=== PATIENT | female | born 2000 | race Caucasian/White ===

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

== ENCOUNTER 2021-04-18 07:00 | Day surgery (SDC) | payer OTHER, SELFPAY ==
[2021-04-18 07:31] LABS: Internal QC Validated? YES +Cl - CLEAR BKGD; Pregnancy, Urine Negative Negative
[2021-04-18 07:35] VITALS: BP 121/77; PULSE 63; RESP 16; TEMP 36.8; O2SAT 100; BMI 23.9
[2021-04-18] MEDS: Lactated Ringers 1,000 ML 100 ML IV ×2 (07:57→10:16)
--- NOTE | 2021-04-18 08:30 | GANG_PTH ---
PATIENT: JONH RUTHERFORD [place] [facility] [place][id number] AGE/SX: 20/F ROOM: RE04/18/[address]: Dr. Rasheed Mora DO : 2000 BED: DIS: 04/18/2021 SPEC #: [id number] RECD: 04/18/21 12:59 STATUS: TISHA DEVIN #: [id number] ANKIT: 04/18/21 08:[address]: Rasheed Mora DEPT: SURGICAL PATHOLOGY RECD BY: Lucia Cruz ENTERED: 04/18/21 13:42 SP TYPE: GANGLION OTHR DR: Dr. Rebeca Villareal MD Tissues: GANGLION CYST Procedures: Surgery Specimen Level III HEADER OPERATION: Diagnostic and operative wrist arthroscopy, excision of wrist PRE-OP DIAGNOSIS: TFCC tear, sprain, ganglion, right hand TISSUE SUBMITTED: Right ganglion cyst MICROSCOPIC DIAGNOSIS Right ganglion cyst, excision: Consistent with ganglion cyst with reactive changes. EVELIN:tai 04/19/2021 MICROSCOPIC DESCRIPTION Slides are reviewed. GROSS DESCRIPTION Received in fixative is one container labeled with the patient's name and designated right ganglion cyst. The specimen consists of light irving-white soft tissue measuring 0.7 x 0.7 x 0.2 cm. The specimen is totally submitted in one cassette. / AM:tai 04/18/21 TC:5 CPT: 98983
[2021-04-18] MEDS: Cefazolin 1 GM/50 ML BAG IV (08:33)
[2021-04-18] MEDS: Bupivacaine Mpf 0.5% 30 ML VIAL (10:13)
--- NOTE | 2021-04-18 10:27 | PCM.DC ---
Discharge Instructions Follow Up Care Test Results: Test results from this visit will be discussed in further detail at your follow-up appointment, if applicable. Discharge Plan Admission Primary Reason for Your Visit: Right wrist triangular fibrocartilage complex tear, ganglion cyst Attending Provider: Rasheed Mora Primary Care Provider: Rebeca Villareal Instructions Additional Instructions / Restrictions: Nonweightbearing to the right upper extremity Maintain splint until follow-up. Keep it clean dry and intact. Ice and elevate the right hand above the level of the heart. Wiggle fingers in splint to encourage circulation Discharge Orders/Prescriptions Prescriptions: New oxycodone-acetaminophen [Percocet] 5-325 mg tablet 1 tab PO Q6H PRN (Reason: pain) 7 Days Qty: 28 RF: 0 ondansetron 4 mg tablet,disintegrating 4 mg PO Q8H PRN (Reason: nausea and vomiting) Qty: 14 RF: 0 No Action multivitamin Tablet 1 tab PO DAILY RF: 0 ascorbic acid (vitamin C) [Vitamin C] 500 mg Tablet 500 mg PO DAILY RF: 0 ibuprofen 200 mg Tablet 200 mg PO Q6H PRN (Reason: Pain) RF: 0 vitamin B complex Tablet 1 tab PO DAILY RF: 0 cholecalciferol (vitamin D3) [Vitamin D3] 25 mcg (1,000 unit) Tablet 25 mcg PO DAILY RF: 0 Hrlpcodh-Igabwt-UPD with vit D 750-30-1,000-1 rt-yw-vyui-mg Tablet 1 tab PO DAILY RF: 0 Cbd Oil 5 drp PO/SL BID RF: 0 Referrals / Follow Up: Rebeca Villareal MD [Primary Care Provider] - Disposition Disposition (needs filled in before D/C Order can be placed): Home, Self Care
--- NOTE | 2021-04-18 10:28 | OP.PCM_ITS ---
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 Right wrist peripheral triangular fibrocartilage complex tear 2. Dorsal intercarpal right wrist ganglion cyst Postoperative diagnosis: 1. Right wrist peripheral triangular fibrocartilage complex tear 2. Dorsal intercarpal right wrist ganglion cyst Procedure: 1. Diagnostic and operative right wrist arthroscopy with synovectomy 2. Open excision right dorsal intercarpal wrist ganglion cyst 3. Right wrist open repair triangular fibrocartilage complex peripheral tear Surgeon: Rasheed Mora DO Anesthesia: General endotracheal Anesthesiologist: Dr. Zamorano Complications: None Drains: None Estimated blood loss: 5 cc Urinary output: None IV fluids: Per anesthesia record Specimens: 1-ganglion cyst right wrist Surgical implants: Arthrex mini push lock anchor x1 with 2-0 FiberWire Surgical indications: This is a 20-year-old female seen in the outpatient setting who presented with right wrist pain. She had tenderness overlying the dorsal carpus as well as ulnar-sided wrist pain. She had a fall in the remote past and has had pain since. She has been self treating this with a brace. She sought care and x- rays were benign. There is no evidence of intercarpal instability on x-ray. MRI was obtained and revealed a dorsal intercarpal ganglion cyst originating from between the lunate and capitate as well as capsulitis. There was also a peripheral tear of the TFCC. Operative intervention was offered in the form of right wrist diagnostic and operative arthroscopy with synovectomy, triangular fibrocartilage complex repair, and ganglion cyst excision. The risk, benefits, alternatives to procedure were reviewed with the patient length and she agreed to proceed. Risk included but were not limited to, bleeding, infection, loss of life or limb, risk of anesthesia, neurovascular injury, persistent pain, need for additional surgery, wound complication, hypertrophic scar, need for prolonged immobilization, stiffness. Patient expressed understanding and wished to proceed with surgery. Informed consent obtained in the office. Description of procedure: Patient was seen in preoperative holding area. She was identified by name, medical record number, date of . The operative extremity was marked with a surgical marker. We confirmed informed consent with the patient and all questions were answered to her satisfaction. At time of her procedure, patient was brought to the operative suite and positioned supine on a standard operating table. All bony prominences were well-padded. General anesthesia was administered. After adequate anesthesia, a well-padded pneumatic tourniquet was applied to the right upper arm. A hand table was attached to the patient's right side. We then secured the upper arm to the hand table with a gel pad taped in place. We then prepped and draped the right upper extremity in normal, sterile orthopedic fashion. We then performed a timeout with all parties in attendance in agreement the side, site, operation to be performed. 1 g Ancef was administered prior to incision by anesthesia staff. No concerns were voiced and elected to proceed. We first exsanguinated the right hand and wrist with an Esmarch bandage. Tourniquet was inflated to 250 mmHg remained up for approximately 65 minutes. We then attached sterile finger traps to the index and ring fingers. Rods were attached and thrown off the end of the hand table and attached to 9 pounds of weights. I then marked our 3 for diagnostic portal just distal to Akshat's tubercle. I utilized 5 cc normal saline and a 22-gauge needle to localize the joint insufflated. Skin was sharply incised with a 11 blade scalpel. I bluntly dissected through the subcutaneous tissue to level capsule which was pierced with a blunt tipped mosquito hemostat. I then exchanged the hemostat for blunt tipped trocar. This was used to gain access to the joint. Inflow cannula was also attached and inflow was initiated. I then remove the one-step trocar for visualization of the joint. We began our diagnostic arthroscopy at this time. The scapholunate interval was identified and the ligament appeared intact. The volar radial wrist ligaments were also visualized. Unremarkable. There was some dorsal wrist synovitis which was noted and debrided with a radial resector which was inserted in a 6R portal under direct visualization utilizing a 22- gauge needle. The TFCC was then probed and a peripheral tear at its styloid attachment was identified. No central perforation was noted. Trampoline test was positive. We then withdrew our scope foregoing the midcarpal arthroscopy due to the known ganglion cyst from the midcarpal joint. I was able to palpate the joint as well as the cyst. The cyst measured 5 x 5 x 3 mm. I extended our 3 4 arthroscopy portal distally approximately 2 cm. Skin was sharply incised with a 15 blade scalpel. Extensor retinaculum was identified and we dissected the interval between the third and fourth compartments. I bluntly dissect to the level of the wrist capsule where the cyst was identified. This appeared acceptable ganglion cyst. I elevated the cyst to its originating stock which appeared from the lunocapitate joint, consistent with preoperative MRI. I then I amputated the stock sharply with letter scissors. Interval was closed with 3-0 Vicryl suture. Subcutaneous layers were closed with 3-0 Vicryl suture and skin finally reapproximated 4-0 Monocryl. Steri-Strips were applied. We then turned our attention to the TFCC tear. I utilized the 6R portal extended proximally and distally approximately [address] in a curvilinear fashion. I sharply dissected the skin with a 15 blade scalpel. I bluntly dissected through subcutaneous layers. Wheat Green[place] retractor was placed. Identified the extensor carpi ulnaris tendon which was protected throughout the case. I did not open the sheath. We developed the plane between the fifth and sixth dorsal compartments. The extensor retinaculum was opened. Identified the wrist capsule which was teed proximal to the TFCC and in line with the skin incision. We then identified the styloid attachment tear in the TFCC was unstable and I was able to grab it with my Adson forceps. I then placed horizontal mattress stitch in the periphery of the TFCC with a 2-0 FiberWire suture. The strands of the FiberWire suture were pulled and there was excellent purchase of the articular disc. I then elevated periosteum from the dorsal ulnar aspect of the distal ulna proximal to the ulnar head by approximately 1 cm. I drilled unicortically for a mini Arthrex push lock anchor. Sutures were then passed through the eyelet of the anchor and the anchor was driven into bone with good tension on the suture. The TFCC was then probed again and appeared stable. I then closed the capsule watertight with 3-0 Vicryl suture. Extensor retinaculum was closed with 3-0 Vicryl suture. Subcutaneous layers were reapproximated with 3-0 Vicryl suture and skin finally reapproximated with 4-0 Monocryl suture and Steri-Strips. Tourniquet was deflated prior to skin closure and hemostasis was excellent. 10 cc 0.5% plain Marcaine was injected around the incisions into the wrist joint for postoperative analgesia. Intraoperative medications: 1 g Ancef IV prior to incision by anesthesia, 10 cc 0.5% plain Marcaine Post Operative Plan: Weightbearing: Nonweightbearing operative extremity Antibiotics: Ancef x 1 dose preoperatively DVT Prophylaxis: Early mobilization Padgett: None Dressing: Maintain splint, keep it clean dry and intact until follow-up X-Rays: 2 weeks postop in the office Pain Medication: Percocet Rx upon discharge Follow-up: 2 weeks post-operatively with me in the office
[2021-04-18 10:32] VITALS: BP 100/38; BP 121/77; PULSE 87; RESP 18; TEMP 36.1; O2SAT 97
[2021-04-18 10:45] VITALS: BP 110/69; BP 121/77; PULSE 87; RESP 16; O2SAT 100
[2021-04-18 11:00] VITALS: BP 109/65; BP 121/77; PULSE 84; RESP 16; O2SAT 99
[2021-04-18 11:15] VITALS: BP 113/65; BP 121/77; PULSE 77; RESP 16; TEMP 36.2; O2SAT 97
[2021-04-18 11:45] VITALS: BP 121/77
== END 2021-04-18 12:17 | disposition home or self-care (01) ==
LOC: SDC 07:04 → AC 07:05
PROVIDERS: Anesthesiology; PCP Internal Medicine Infectious Disease; Visit Provider Student in an Organized Health Care Education/Training Program
PROC: (CPT 25111; principal; 2021-04-18 08:15)
DX: S63.591A Other specified sprain of right wrist, initial encounter (principal); M67.431 Ganglion, right wrist; W19.XXXA Unspecified fall, initial encounter; Y93.9 Activity, unspecified; Y92.9 Unspecified place or not applicable; Y99.9 Unspecified external cause status; M06.9 Rheumatoid arthritis, unspecified; Z79.899 Other long term (current) drug therapy
CPT/HCPCS: 01830; 25111; 29846; 81025; 88304; C1713; J7120; J2405

== ENCOUNTER 2021-04-23 22:25 | Emergency (ER) | payer OTHER, SELFPAY ==
[2021-04-23 22:26] VITALS: BP 126/77; PULSE 119; RESP 18; TEMP 36.6; O2SAT 100; BMI 23.3
--- NOTE | 2021-04-23 23:20 | EDS_ITS ---
HPI History of Present Illness Chief Complaint: Wound Check Informant: patient Onset/Context/Timing Onset: Today Context: Gradual Onset Timing: Continuous Quality of Pain: Dull and Aching Current Severity: Mild Maximum Severity: Mild Narrative Narrative: 20-year-old female status post right wrist surgery for a TFCC repair and cyst removal. She had this done [address] Mora of orthopedics here at the hospital. Patient states been doing well. She is a little bit of discomfort and was concerned that the splint she had on may be rubbing the wound or it could potentially be infected. She denies any fever or chills. Says it is actually feeling better and the swelling has been going down since the day of the surgery. She states she has been icing and elevating it. Prior similar symptoms: No Recent Illness/Hospitalization: No PFSH PFSH Medical History Back pain Dietary restriction Gastric reflux History of steroid therapy Lupus Non-smoker Rheumatoid arthritis Wears contact lenses Wears glasses Home Medications Cbd Oil 5 drp PO/SL BID 04/15/21 [History Last Taken Unknown] ascorbic acid (vitamin C) [Vitamin C] 500 mg PO DAILY 04/15/21 [History Last Taken Unknown] cholecalciferol (vitamin D3) [Vitamin D3] 25 mcg PO DAILY 04/15/21 [History Last Taken Unknown] gnuyraqc-yasbp-qbf 2-C-D3-primo [Ioxprawk-Tlywgk-XDO with vit D] 1 tab PO DAILY 04/15/21 [History Last Taken Unknown] ibuprofen 200 mg PO Q6H PRN 04/15/21 [History Last Taken Unknown] multivitamin 1 tab PO DAILY 04/15/21 [History Last Taken Unknown] vitamin B complex 1 tab PO DAILY 04/15/21 [History Last Taken Unknown] ondansetron 4 mg PO Q8H PRN #14 tab 04/18/21 [Rx Last Taken Unknown] oxycodone-acetaminophen [Percocet] 1 tab PO Q6H PRN 7 Days #28 tab 04/18/21 [Rx Last Taken Unknown] Allergy/AdvReac Type Severity Reaction Status Date / Time gluten AdvReac Upset Verified 04/23/21 22:30 Stomach lactose AdvReac Upset Verified 04/23/21 22:30 Stomach Surgical History Hx of tonsillectomy Social History Smoking Status: Never smoker ROS ROS ED ROS Narrative Denies. Review of Systems ROS Unobtainable: Denies due to encephalopathy Constitutional Constitutional ED: Denies fever(s) Eyes Eyes: Denies change in vision ENT ENT ED: Denies ear pain Cardiovascular Cardiovascular: Denies chest pain Respiratory/Chest Respiratory/Chest: Denies dyspnea Gastrointestinal Gastrointestinal: Denies abdominal pain Genitourinary Genitourinary ED: Denies dysuria Musculoskeletal Musculoskeletal: Denies myalgias Integumentary Denies rash Neurologic Neurologic: Denies headache(s) Psychiatric Psychiatric: Denies depression Endocrine Endocrinology: Denies polyuria Hematologic/Lymphatic Hematologic/Lymphatic: Denies easy bruising Allergic/Immunologic Allergic/Immunologic ED: Denies urticaria EXAM Physical Exam Narrative Exam Narrative: Healthy 20-year-old female no acute distress. She has a all long arm sugar tong splint on her right forearm from the palm to the elbow. This was removed. There is minimal swelling to her fingers. The wound sites on the dorsum of her wrist are dry and clean. There is no signs of infection. No redness no pus and no streaks. She is able to wiggle her fingers. She has normal touch sensation and cap refill. She has a strong radial pulse. There is no pain axillary lymphadenopathy. This appears to be very normal healing postoperatively. There is no significant disruption of the skin from the well- padded splint that was on. Otherwise exam unremarkable. Const Vital Signs: 04/23/21 22:26 Temperature 97.9 F Temperature Source Temporal Pulse Rate 119 H Respiratory Rate 18 Blood Pressure 126/77 H Blood Pressure Mean 93 Pulse Ox 100 Oxygen Delivery Method Room Air Positive well nourished and well developed General Appearance ED: well developed and NAD HEENT normocephalic and atraumatic Eyes PERRL Neck full ROM and supple Chest Wall inspection of chest normal and palpation of chest normal Resp normal respiratory effort and clear to auscultation bilaterally Cardio regular rate, regular rhythm, S1 normal heart sound, S2 normal heart sound and no murmurs GI non-tender and non-distended Palpation: soft Extremity normal to inspection Extremity Narrative: Normal postop and inspection. Mild swelling. No redness. No warmth. No breakdown of the skin. Able to wiggle her fingers. Normal cap refill and touch sensation. Well-healing wounds. Neuro oriented x3 Sensorium / Orientation: alert, oriented to person, oriented to place and oriented to time Psych mental status grossly normal Skin Lesions: no lesions Rashes: no rashes MDM MDM MDM Narrative Medical decision making narrative: Postop wound check. Remove the long-arm sugar tong splint. Evaluated the wound. And replaced it with a new long-arm right AP well-padded splint. Patient was instructed on ice and elevating the w rist. Motrin for pain and follow-up with her orthopedic physician. Procedures Upper Extremity Splints Upper Extremity Splint: Orthoglass and Long arm Splint Fabrication: Fabricated Location: Right Discharge Plan Triage Chief Complaint: Wound Check ED Provider: Jean Paul Ruiz Dx/Rx/DC Orders Clinical Impression: Encounter for postoperative wound check Instructions: ED Wound Check (No Infection) Prescriptions: No Action multivitamin Tablet 1 tab PO DAILY RF: 0 ascorbic acid (vitamin C) [Vitamin C] 500 mg Tablet 500 mg PO DAILY RF: 0 ibuprofen 200 mg Tablet 200 mg PO Q6H PRN (Reason: Pain) RF: 0 vitamin B complex Tablet 1 tab PO DAILY RF: 0 cholecalciferol (vitamin D3) [Vitamin D3] 25 mcg (1,000 unit) Tablet 25 mcg PO DAILY RF: 0 Xjydpvaq-Rceyzl-EBS with vit D 750-30-1,000-1 bg-mw-hzsx-mg Tablet 1 tab PO DAILY RF: 0 Cbd Oil 5 drp PO/SL BID RF: 0 oxycodone-acetaminophen [Percocet] 5-325 mg tablet 1 tab PO Q6H PRN (Reason: pain) 7 Days Qty: 28 RF: 0 ondansetron 4 mg tablet,disintegrating 4 mg PO Q8H PRN (Reason: nausea and vomiting) Qty: 14 RF: 0 Primary Care Provider: Rebeca Villareal Referrals: Rasheed Mora DO [STAFF PHYSICIAN] - Keep Dino appointment Rebeca Villareal MD [Primary Care Provider] - Activity Restrictions/Additional Instructions: Keep the dry and clean. Ice and elevate to decrease pain and swelling. Motrin to decrease pain and swelling. Follow-up with your orthopedic doctor to have it rechecked as scheduled. This should progressively continue to get better. Disposition Disposition: Home, Self Care
[2021-04-24 00:07] VITALS: RESP 16
== END 2021-04-24 00:07 | disposition home or self-care (01) ==
PROVIDERS: Emergency Provider Emergency Medicine; PCP Internal Medicine Infectious Disease
DX: Z47.89 Encounter for other orthopedic aftercare (principal); M32.9 Systemic lupus erythematosus, unspecified; M06.9 Rheumatoid arthritis, unspecified; K21.9 Gastro-esophageal reflux disease without esophagitis; Z79.899 Other long term (current) drug therapy
CPT/HCPCS: 29105; 99282

== ENCOUNTER → 2024-03-14 | Outpatient (CLI) | payer OTHER, SELFPAY ==
--- NOTE | 2024-03-14 13:53 | US_ITS ---
STUDY: THYROID ULTRASOUND REASON FOR EXAM: Female, 23 years old. Palpably enlarged thyroid TECHNIQUE: Ultrasound evaluation of the thyroid was performed with real-time and static burrell-scale imaging. COMPARISON: None. FINDINGS: RIGHT LOBE: The right lobe of the thyroid gland measures 5.4 x 1.5 x 1.4 cm. There is a homogeneous echotexture. There are no demonstrated solid, cystic or complex lesions. LEFT LOBE: The left lobe of the thyroid gland measures 5 x 1.7 x 1.4 cm. There is a homogeneous echotexture. There are no demonstrated solid, cystic or complex lesions. ISTHMUS: The isthmus measures 2.9 mm. The regional lymph nodes are normal. US/Thyroid IMPRESSION: Borderline enlarged homogeneous thyroid without discrete lesion or hyperemia Electronically Signed: Skyler Reese MD at 9:35 EDT ,
== END | disposition home or self-care (01) ==
PROVIDERS: PCP Internal Medicine; Referring Provider Internal Medicine; Visit Provider Internal Medicine
DX: E01.0 Iodine-deficiency related diffuse (endemic) goiter (principal)
CPT/HCPCS: 76536

== ENCOUNTER → 2024-06-20 | Outpatient (CLI) | payer OTHER, SELFPAY ==
[2024-06-20 16:00] LABS: Absolute Lymphocyte Count 3.19 X10^3/uL (0.83-4.51); Basophil# 0.05 X10^3/uL; Basophil% 0.7 % (0-1); Eosinophil# 0.05 X10^3/uL; Eosinophils% 0.7 % (0-5); Hematocrit 42.5 % (37-47); Hemoglobin 13.6 g/dL (12.0-15.0); Lymphocyte # 3.19 X10^3/ul (0.83-4.51); Lymphocyte % 47.1 % (19-41); Mean Corpuscular Hgb 29.1 pg (27.0-32.0); Mean Corpuscular Volume 90.8 fL (81-99); Mean Platelet Vol. 9.2 fl (6.2-12.0); Monocyte# 0.49 X10^3/uL; Monocyte% 7.2 % (0-10); NRBC Flagged by Analyzer 0 % (0-5); Neutrophil # 2.97 X10^3/uL (2.7-7.7); POSITIVE MORPHOLOGY YES; Platelet Count 365 K/mm3 (150-450); RBC Distribution Width CV 12.8 % (11.6-14.6); RBC Distribution Width SD 42.1 fl (35.1-43.9); Red Blood Count 4.68 M/mm3 (4.2-5.4); White Blood Count 6.8 K/mm3 (4.4-11.0)
[2024-06-20 16:06] LABS: Differential Indicated SCAN CRITERIA MET
[2024-06-20 16:28] LABS: Anisocytosis RARE; Atypical Lymphocyte 2+ %; Macrocytosis RARE; Ovalocyte RARE; Platelet Estimate ADEQUATE (ADEQ); Red Cell Morphology N CHROM NORMAL (NORM C&C)
[2024-06-20 16:39] LABS: ALB/GLOB Ratio 1.1 RATIO (0.9-2.4); AST(SGOT) 32 U/L (15-37); Alanine Aminotransfer ALT/SGPT 146 U/L (13-56); Albumin, Serum 3.9 g/dL (3.2-5.0); Alkaline Phosphatase 129 U/L (45-117); Anion Gap 4 (5-15); BUN 9 mg/dL (7-18); BUN/Creat Ratio 14.8 RATIO (10-20); Calcium,Total 9.2 mg/dL (8.5-10.1); Chloride 104 mmol/L (98-107); Creatinine, Serum 0.61 mg/dL (0.55-1.02); EST Glomerular Filtration Rate 129 mL/min (>60); Est Glom Filt Rate - Afr Amer 156 mL/min (>60); Globulin 3.5 g/dL (2.2-4.2); Glucose 103 mg/dL (74-106); Potassium 3.9 mmol/L (3.5-5.1); Protein, Total 7.4 g/dL (6.4-8.2); Sodium Level 138 mmol/L (136-145)
== END | disposition home or self-care (01) ==
LOC: LAB 15:31
PROVIDERS: PCP Internal Medicine; Referring Provider Internal Medicine; Visit Provider Internal Medicine
DX: B19.9 Unspecified viral hepatitis without hepatic coma (principal)
CPT/HCPCS: 36415; 80053; 85025